=== PATIENT | male | born 1975 | race Caucasian/White ===

== ENCOUNTER 2019-04-17 22:53 | Emergency (ER) | payer SELFPAY ==
[~2019-04-17] VITALS: Ht 182.9 cm; Wt 108.9 kg
[2019-04-17 23:00] VITALS: Ht 182.9 cm; Wt 108.9 kg
[2019-04-18 06:16] VITALS: BP 134/79
== END 2019-04-18 06:20 | disposition home or self-care (01) ==
LOC: ED 22:53
DX: F10.120 Alcohol abuse with intoxication, uncomplicated (principal)

== ENCOUNTER 2019-11-18 23:28 | Emergency (ER) | payer SELFPAY ==
[~2019-11-18] VITALS: Ht 177.8 cm; Wt 99.8 kg
[2019-11-18 23:39] VITALS: Ht 177.8 cm; Wt 99.8 kg
[2019-11-19 00:56] VITALS: BP 132/88
== END 2019-11-19 00:56 | disposition left against medical advice (07) ==
LOC: ED 23:28
DX: Z53.21 Procedure and treatment not carried out due to patient leaving prior to being seen by health care provider (principal)